=== PATIENT | male | born 1990 | race Caucasian/White ===

== ENCOUNTER 2018-01-09 22:01 | Emergency (ER) | payer OTHER ==
[~2018-01-09] VITALS: Ht 175.3 cm; Wt 54.4 kg
== END 2018-01-10 00:51 | disposition designated cancer center or children's hospital (05) ==
LOC: ER 22:01
DX: K91.840 Postprocedural hemorrhage of a digestive system organ or structure following a digestive system procedure (principal); Z98.818 Other dental procedure status

== ENCOUNTER 2020-04-15 07:56 | Outpatient (CLI) | payer OTHER | END 2020-04-15 08:05 | disposition home or self-care (01) | LOC: SONOGRAMA 07:56 | PROVIDERS: ATTEND Pathology Anatomic Pathology & Clinical Pathology | DX: C85.85 Other specified types of non-Hodgkin lymphoma, lymph nodes of inguinal region and lower limb (principal) ==